=== PATIENT | female | born 1950 | race Caucasian/White ===

== ENCOUNTER 2022-01-06 13:01 | Outpatient (CLI) | payer MEDICARE, SELFPAY ==
[2022-01-06 15:00] LABS: Chloride* 100 mmol/L (96-114); Potassium* 4.5 mmol/L (3.6-5.1); Sodium* 136 mmol/L (135-149)
[2022-01-06 15:03] LABS: Blood Urea Nitrogen* 15 mg/dL (7-30); Carbon Dioxide* 29 mmol/L (20-32); Cholesterol* 220 mg/dL (90-199); Creatinine* 0.8 mg/dL (0.5-1.5); Estimated Glomerular Filt Rate 79 ml/min; Glucose* 95 mg/dL (60-115)
[2022-01-06 15:04] LABS: Calcium* 9.4 mg/dL (8.4-10.6); HDL Cholesterol* 66 mg/dL (>=50); LDL Cholesterol Calculated 128 mg/dL (<100); Triglycerides* 128 mg/dL (40-149)
[2022-01-06 15:24] LABS: Vitamin D 25 Hydroxy* 44 ng/mL (30-80)
== END 2022-01-06 13:02 | disposition home or self-care (01) ==
PROVIDERS: PCP Internal Medicine; Visit Provider Internal Medicine
DX: M85.80 Other specified disorders of bone density and structure, unspecified site (principal); I10 Essential (primary) hypertension; E78.5 Hyperlipidemia, unspecified
CPT/HCPCS: 80048; 80061; 82306

== ENCOUNTER 2022-01-09 07:06 | Outpatient (CLI) | payer MEDICARE, SELFPAY ==
--- NOTE | 2022-01-09 09:00 | W.ANESCHARGE ---
Anesthesia Charges Start Date/Time Anesthesia Start Date: 01/09/22 Anesthesia Start Time: 08:05 Stop Date/Time Anesthesia Stop Date: 01/09/22 Anesthesia Stop Time: 08:45 Summary Emergency: No Extremes of Age: Over 70-CPT [id number]
--- NOTE | 2022-01-09 09:23 | W.ANESCHARGE ---
Anesthesia Charges Start Date/Time Anesthesia Start Date: 01/09/22 Anesthesia Start Time: 08:05 Stop Date/Time Anesthesia Stop Date: 01/09/22 Anesthesia Stop Time: 08:45 Summary Emergency: No Extremes of Age: Over 71-CPT [id number]
== END 2022-01-09 07:07 | disposition home or self-care (01) ==
PROVIDERS: PCP Internal Medicine; Visit Provider Surgery
DX: Z86.010 Personal history of colon polyps (principal); K63.5 Polyp of colon; K57.30 Diverticulosis of large intestine without perforation or abscess without bleeding; Z98.890 Other specified postprocedural states
CPT/HCPCS: 45385; 811; 88305; 99100; J2704

== ENCOUNTER 2022-02-12 07:30 | Outpatient (RCR) | payer MEDICARE, SELFPAY | END 2022-02-14 08:32 | disposition home or self-care (01) | PROVIDERS: PCP Internal Medicine; Visit Provider Internal Medicine | DX: M25.562 Pain in left knee (principal); Z51.89 Encounter for other specified aftercare | CPT/HCPCS: 97110 ==

== ENCOUNTER 2022-03-18 12:39 | Outpatient (CLI) | payer MEDICARE, SELFPAY ==
--- OUTSIDE RECORDS SUMMARY | 2022-03-18 12:41 | XMS_ITS | Clinical Summary ---
:1950 Author Organization [employer] [facility] [place] [address] Care Team Providers Name Role Phone [facility] Primary Care Provider Unavailable Allergies No known active allergies Medications Medication Sig Dispensed Refills Start Date End Date Status EPINEPHrine (EPIPEN) Inject 0.3 mg 2 Each 1 12/05/2013 Active 0.3 mg/0.3 mL intramuscular one (1:1,000) injection time if needed for Allergic Reaction. acyclovir (ZOVIRAX) TAKE 1 TABLET BY 45 tablet 2 01/31/2015 Active 400 mg MOUTH THREE TIMES tabletIndications: DAILY NEEDED FOR Herpes simplex 5 DAYS without mention of complication predniSONE Take 4 tabs x 2 20 tablet 0 01/31/2015 Ac tive (DELTASONE) 10 mg days, then 3tabs x 2 tabletIndications: days, then 2 tabs x Contact dermatitis 2 days and then 1 tab x 2days. triamcinolone Apply topically to 30 g 1 01/31/2015 Active (ARISTOCORT; affected area(s) 3 KENALOG) 0.1 % times daily. creamIndications: Contact dermatitis predniSONE 3 tabs qday x 3 20 tablet 0 02/05/2015 Ac tive (DELTASONE) 20 mg days, then 2 tabs x tabletIndications: 3 days, then 1 tab x Contact dermatitis 3 days then 1/2 tab x 4 days. Active Problems Problem Noted Date Unspecified constipation 08/16/2012 Adenomatous colon polyp 06/09/2012 Overview: Colonoscopy 05/2012 polyp repeat in 3 ye ars Skin lesion 01/05/2012 Vitamin D deficiency 02/12/2011 Thoracic or lumbosacral neuritis or radiculitis, unspe cified 05/19/2008 Displacement of lumbar intervertebral disc without mye lopathy 05/19/2008 Overview: Herniated l4-5 disc noted on MRI health maintenance 10/25/2007 Overview: Colonoscopy negative 1999. Osteopenia on dexa. Recommend diet and e xercise. Recheck 3-5 years. Lola Malagon M.D. 03/23/2012 9 :56 PM Unspecified tinnitus 10/25/2007 Overview: Evaluation unremarkable 04/11 Herpes simplex without mention of complication 008 Encounters Date Type Specialty Care Team Description 01/09/2022 Lab Requisition Baron Henry MD from Last 3 Months Immunizations Name Administration Dates Next Due Amb Influenza, Inact (Intradermal)(age 18-64 Yrs)(Flu 2012 Clinic Only) Td (Age >=7 Years) 07/31/1997 Tdap 10/25/2007 Zoster (Zostavax-ZVL, live) 01/05/2012 Family History Medical History Relation Name Comments Heart Disease Father uncertain age of onset Other Father COPD/ dementia Other Mother emphasema/early alzheimers, osteoporosis Diabetes Neg. 1 Cancer-colon Neg. 2 Cancer-ovarian Neg. 3 Cancer-breast No Family History Relation Name Status Comments Father Mother Neg. 1 Neg. 2 Neg. 3 Social History Tobacco Use Types Packs/Day Years Used Date Never Smoker Smokeless Tobacco: Never Used Tobacco Cessation: Counseling Given: Yes Alcohol Use Standard Drinks/Week Comments Yes 0 (1 standard drink = 0.6 oz pure alcoho l) rarely Sex Assigned at Date Recorded Not on file Obstetrics History Para Term AB IAB SAB Ectopic Multiple Living Live Births 2 2 2 Date Outcome GA Total Labor/2nd/3rd Weight Sex Delivery Anes PTL Jane A 1 A5 Name Clin Labor Para Para Last Filed Vital Signs Vital Sign Reading Time Taken Comments Blood Pressure 134/78 01/31/2015 12:48 PM CDT Pulse 62 01/31/2015 12:48 PM CDT Temperature 36.9 ??C (98.4 ??F) 01/31/2015 12:48 PM CDT Respiratory Rate - - Oxygen Saturation 100% 01/31/2015 12:48 PM CDT Inhaled Oxygen Concentration - - Weight 76.2 kg (168 lb) 01/31/2015 12:48 PM CDT Height 160 cm (5' 3) 10/06/2013 2:39 PM CDT Body Mass Index 29.76 10/06/2013 2:39 PM CDT Plan of Treatment Health Maintenance Due Date Last Done Comments COVID-19 vaccine series (#1) 1950 Depression screening for age 12+ 1963 BMI (ht and wt on same day) for age 0106/26/1969 18+ Hepatitis C screening for age 18-79 1969 Zoster (shingles) series for age 50+ 03/01/2012 01/05/2012 (2 of 3) Mammogram for age 45-75 12/28/2012 12/29/2011, 11/05/2010, 10/25/2007 Colonoscopy through age 75 05/28/2015 05/28/2012, 2 DEXA/DXA scan for age 65+ 2016 03/16/2012 Pneumococcal series for age 65+ (1 - 2016 PCV) Lipids for age 45-75 12/28/2016 12/29/2011, 11/05/2010, 10/07/2007 Tetanus booster 10/24/2017 10/25/2007, 07/31/1997 Influenza for age 65+ 02/06/2022 Tdap Completed 10/25/2007 Procedures Procedure Name Priority Date/Time Associated Diagnosis Comme nts LAB TRACKING EVENT Routine 01/09/2022 8:25 AM CDT PATH TISSUE EXAM Routine 01/09/2022 8:25 AM Resul ts for this CDT procedure are i n the results section. from Last 3 Months Results LAB TRACKING EVENT (01/09/2022 8:25 AM CDT) Specimen Anatomical Collection Method Collection Time Receive d Time (Source) Location / / Volume Laterality Other (Other) Client Collect / 01/09/2022 8:25 AM 09/2021 9:37 Unknown CDT PM CDT Baron Henry MD LAB BILL ONLY Performing Organization Address City/State/ZIP Code Phon e Number [facility] [address] [place] [address] LABORATORY-CENTRAL 1999 LABORATORY PATH TISSUE EXAM (01/09/2022 8:25 AM CDT) Component Value Ref Test Analysis Performed At [facility] gist Range Method Time Signature Case Report Pathology Report ?Case: [id number] ? 01/13/2022 [facility] Authorizing Provider: ??Baron Garber MD ?Collected: ? 01/09/2022 0825 ? 10:39 AM LABORAT ORY-CE Ordering Location: ? [facility] ?Received: ?01/10/2022 1316 ? CDT NT [facility] Pathologist: ? Lorelei Brown, DO ? LABORATORY Specimen: ?Splenic Flexu re Polyp ? Final A) COLON, SPLENIC FLEXURE, POLYPECTOMY: 01/13/2022 [facility] Electronically Diagnosis 1. Tubular adenoma 10:39 AM LABORATORY- CE signed by 2. Negative for high grade dysplasia CDT Lorelei Rausch 3. Per the colonoscopy report: CASTRO Mcgill, DO on ?? a. Polyp size: 4 mm 01/13/2022 at ?? b. Resection: Complete 10:39 AM ?? c. Retrieval: Complete Clinical Ms. Schaeffer is 01/13/2022 [facility] Information a 71 y.o. who 10:39 AM LABORATORY-CE presents for CDT NTRAL colonoscopy LABORATORY examination. A 4 mm polyp was found at the splenic flexure. Gross A) Received in formalin is a tomlinson mucosal fragment measuring 3 mm in greatest dimension, which is entirely submitted in one cassette. It is labeled with the patient's name and designated splenic flexure polyp. 01/13/2022 [facility] Description 10:39 AM LABORATORY-CE Larry Delaney 01/10/2022 1:29 PM CDT NTRAL LABORATORY Microscopic The final 01/13/2022 [facility] Description diagnosis is 10:39 AM LABORATORY-CE based on CDT NTRAL microscopic LABORATORY examination of appropriate sections of all specimens. Additional 01/13/2022 [facility] Information Interpreted at [facility], Central Laboratory - [address], [place] [address] 10:39 AM LABORATORY-CE CDT NTRAL LABORATORY Specimen Anatomical Collection Method Collection Time Receive d Time (Source) Location / / Volume Laterality Other (Splenic 01/09/2022 8:25 AM 022 1:16 Flexure Polyp) CDT PM CDT Baron Henry MD PATHOLOGY/CYTOLOGY Performing Organization Address City/State/ZIP Code Phon e Number [facility] [address] [place] [address] LABORATORY-CENTRAL 2000 LABORATORY from Last 3 Months Insurance Payer Benefit Plan / Subscriber ID Effective Dates Phone Addre ss Type Group [employer] OF [id number] 2014-Present [address] [place] [address] Guarantor Name Account Type Relation to Date of Phone Bill ing Patient Address Ysabel Schaeffer Personal/Family Self [address] (Home) [place] [phone] (Work) Care Teams Residence Life Director Relationship Specialty Start Date End Date Erma Gipson PCP - General 04/02/16
--- NOTE | 2022-03-18 13:00 | CRLHL7_ITS ---
For Patients: As a result of the Cures Act, medical imaging exams and procedure reports are released immediately into your electronic medical record. You may view this report before your referring provider. If you have questions, please contact your health care provider. BILATERAL SCREENING MAMMOGRAM WITH COMPUTER-AIDED DETECTION AND TOMOSYNTHESIS TECHNIQUE: CC and MLO views were obtained. These mammographic images have been obtained using full-field digital technique. These mammographic images were interpreted with the benefit of computer-aided detection. Breast Tomosynthesis was used in this interpretation. COMPARISON FILM: 02/14/21, 04/17/17, 10/12/15. FINDINGS: The breasts are almost entirely fatty IMPRESSION: There is no radiographic evidence for malignancy. ASSESSMENT: BI-RADS Category 1: Negative RECOMMENDATION: Routine screening mammogram in 1 year. A lay language report of this examination will be provided to the patient. Larry Guzman M.D. Diagnostic Radiologist [email or web address] EFRA/telma / be/Dictated by: Larry Guzman MD @ 03/19/2022 11:42:00 AM (Electronically Signed)
== END 2022-03-18 12:40 | disposition home or self-care (01) ==
LOC: MAMMO 12:39
PROVIDERS: PCP Internal Medicine; Visit Provider Internal Medicine
DX: Z12.31 Encounter for screening mammogram for malignant neoplasm of breast (principal)
CPT/HCPCS: 77063; 77067

== ENCOUNTER 2022-04-11 09:37 | Outpatient (CLI) | payer MEDICARE, SELFPAY ==
--- OUTSIDE RECORDS SUMMARY | 2022-04-11 09:40 | XMS_ITS | Clinical Summary ---
:1950 Author Organization [employer] [facility] [place] [address] Care Team Providers Name Role Phone [place] [facility] Primary Care Provider Unavailable Allergies No known [...] Organization Address City/State/ZIP Code Phon e Number [facility] [address] [place] [address] LABORATORY-CENTRAL 1999 LABORATORY PATH TISSUE EXAM (01/09/2022 8:25 AM CDT) Component Value Ref Test Analysis Performed At [facility] gist Range Method Time Signature Case Report Pathology Report ?Case: [id number] ? 01/13/2022 [facility] Authorizing Provider: ??Baron Garber MD ?Collected: ? 01/09/2022 0825 ? 10:39 AM LABORAT ORY-CE Ordering Location: ? [facility] ?Received: ?01/10/2022 1316 ? CDT NT [facility] Pathologist: ? Lorelei Brown, DO ? LABORATORY Specimen: ?Splenic Flexu re Polyp ? Final A) COLON, SPLENIC FLEXURE, POLYPECTOMY: 01/13/2022 [facility] Electronically Diagnosis 1. Tubular adenoma 10:39 AM LABORATORY- CE signed by 2. Negative for high grade dysplasia CDT Lorelei Rausch 3. Per the colonoscopy report: CASTRO Mcgill, DO on ?? a. Polyp size: 4 mm 01/13/2022 at ?? b. Resection: Complete 10:39 AM ?? c. Retrieval: Complete Clinical Ms. Schaeffer is 01/13/2022 [facility] Information a 71 y.o. who 10:39 AM LABORATORY-CE presents for CDT NTRAL colonoscopy LABORATORY examination. A 4 mm polyp was found at the splenic flexure. Gross A) Received in formalin is a tomlinson mucosal fragment measuring 3 mm in greatest dimension, which is entirely submitted in one cassette. It is labeled with the patient's name and designated splenic flexure polyp. 01/13/2022 [facility] Description 10:39 AM LABORATORY-CE Larry Delaney 01/10/2022 1:29 PM CDT NTRAL LABORATORY Microscopic The final 01/13/2022 [facility] Description diagnosis is 10:39 AM LABORATORY-CE based on CDT NTRAL microscopic LABORATORY examination of appropriate sections of all specimens. Additional 01/13/2022 [facility] Information Interpreted at [facility], Central Laboratory - [address], [place] [address] 10:39 AM LABORATORY-CE CDT NTRAL LABORATORY Specimen Anatomical Collection Method Collection Time Receive d Time (Source) Location / / Volume Laterality Other (Splenic 01/09/2022 8:25 AM 022 1:16 Flexure Polyp) CDT PM CDT Baron Henry MD PATHOLOGY/CYTOLOGY Performing Organization Address City/State/ZIP Code Phon e Number [facility] [address] [place] [address] LABORATORY-CENTRAL 2000 LABORATORY from Last 3 Months Insurance Payer Benefit Plan / Subscriber ID Effective Dates Phone Addre ss Type Group [employer] OF [id number] 2014-Present [address] [place] [address] Guarantor Name Account Type Relation to Date of Phone Bill ing Patient Address Ysabel Schaeffer Personal/Family Self [address] (Home) [place] [phone] (Work) Care Teams Csr Technician Relationship Specialty Start Date End Date Erma Gipson PCP - General 04/02/16
== END 2022-04-11 09:38 | disposition home or self-care (01) ==
LOC: NFLDREF 09:38
PROVIDERS: PCP Internal Medicine; Visit Provider Family Medicine
DX: R35.0 Frequency of micturition (principal)
CPT/HCPCS: 87086

== ENCOUNTER 2022-06-17 11:36 | Outpatient (CLI) | payer MEDICARE, SELFPAY ==
[2022-06-17 14:47] LABS: Chlamydia DNA Amplified* NOT DETECTED (No Detected); GC DNA Amplified* NOT DETECTED (No Detected)
== END 2022-06-17 11:37 | disposition home or self-care (01) ==
LOC: NFLDREF 11:37
PROVIDERS: PCP Internal Medicine; Visit Provider Family Medicine
DX: R10.2 Pelvic and perineal pain (principal); R21 Rash and other nonspecific skin eruption
CPT/HCPCS: 87491; 87591

== ENCOUNTER 2023-08-27 09:54 | Outpatient (CLI) | payer MEDICARE, SELFPAY ==
--- NOTE | 2023-08-27 10:15 | MM_ITS ---
Patient: MELANIA CARTER Facility:?[facility] Patient ID:?[id number] Site Patient ID:?[id number] Site :?1950 Study:?XRay-Breast Bilateral 3D W/CAD-08/27/2023 10:36:03 AM Ordering Physician:Adri Cabrera Final Report: BILATERAL SCREENING MAMMOGRAM WITH COMPUTER-AIDED DETECTION AND TOMOSYNTHESIS TECHNIQUE: CC and MLO views were obtained. These mammographic images have been obtained using full-field digital technique. These mammographic images were interpreted with the benefit of computer-aided detection. Breast Tomosynthesis was used in this interpretation. COMPARISON FILM: 03/18/22, 02/14/21, 04/17/17. FINDINGS: The breasts are almost entirely fatty. IMPRESSION: There is no radiographic evidence for malignancy. ASSESSMENT: BI-RADS Category 2: Benign RECOMMENDATION: Routine screening mammogram in 1 year. A lay language report of this examination will be provided to the patient. Larry Guzman M.D. Diagnostic Radiologist [email or web address] DSM/sp R& Transcribed: 6:13 p.m. SP/Dictated by: Larry Guzman MD @ 08/27/2023 12:11:00 PM Signed by:?Larry Guzman MD @08/28/2023 5:42:56 AM (Electronic Signature)
== END 2023-08-27 09:55 | disposition home or self-care (01) ==
LOC: MAMMO 09:54
PROVIDERS: PCP Internal Medicine; Visit Provider Internal Medicine
DX: Z12.31 Encounter for screening mammogram for malignant neoplasm of breast (principal); I10 Essential (primary) hypertension; E78.5 Hyperlipidemia, unspecified; E66.9 Obesity, unspecified
CPT/HCPCS: 77063; 77067; 80048; 80061; 82306

== ENCOUNTER 2023-09-30 12:47 | Outpatient (CLI) | payer MEDICARE, SELFPAY ==
--- OUTSIDE RECORDS SUMMARY | 2023-09-30 12:50 | XMS_ITS | Clinical Summary ---
Author Name Unknown Organization [employer] [facility] Address [place], [place] [address] Care Team Providers Care Novelties Sales Representative Name Role Phone [facility] Primary Care Provider Unavail able Allergies No known active allergies Medications Medication Sig Dispensed Refills Start Date End Date Status EPINEPHrine (EPIPEN) 0.3 mg/0.3 mL (1:1,000) injection Inject 0.3 mg intramuscular one time if needed for Allergic Reaction. 2 Each 1 12/05/2013 Active acyclovir (ZOVIRAX) 400 mg tabletIndications:H erpes simplex without mention of complication TAKE 1 TABLET BY MOUTH THREE TIMES DAILY NEEDED FOR 5 DAYS 45 tablet 2 01/31/2015 Active predniSONE (DELTASONE) 10 mg tabletIndications:C ontact dermatitis Take 4 tabs x 2 days, then 3tabs x 2 days, then 2 tabs x 2 days and then 1 tab x 2days. 20 tablet 0 01/31/2015 Active triamcinolone (ARISTOCORT; KENALOG) 0.1 % creamIndications:Co ntact dermatitis Apply topically to affected area(s) 3 times daily. 30 g 1 01/31/2015 Active predniSONE (DELTASONE) 20 mg tabletIndications:C ontact dermatitis 3 tabs qday x 3 days, then 2 tabs x 3 days, then 1 tab x 3 days then 1/2 tab x 4 days. 20 tablet 0 02/05/2015 Active Active Problems Problem Noted Date Diagnosed Date Unspecified constipation 08/16/2012 Adenomatous colon polyp 06/09/2012 Overview: Colonoscopy 05/2012 polyp repeat in 3 years Skin lesion 01/05/2012 Vitamin D deficiency 02/12/2011 Thoracic or lumbosacral neur itis or radiculitis, unspecified 05/19/2008 Displacement of lumbar inter vertebral disc without myelopathy 05/19/2008 Overview: Herniated l4-5 disc noted on MRI health maintenance 10/25/2007 Overview: Colonoscopy negative 1999. Osteopenia on dexa. Recommend diet and exercise. Recheck 3-5 years. Lola Malagon M.D. 03/23/2012 9:56 PM Unspecified tinnitus 10/25/2007 Overview: Evaluation unremarkable 04/11 Herpes simplex without mention of complication 0 10/25/2007 Immunizations Name Administration Dates Next Due Amb Influenza, Inact (Intrad ermal)(age 18-64 Yrs)(Flu Clinic Only) 05/06/2013 Td (Age >=7 Years) 07/31/1997 Tdap 10/25/2007 [...] Tobacco Use Types Packs/Day Years Used Date Smoking Tobacco: Never Smokeless Tobacco: Never Tobacco Cessation:Counseling Given: Yes Alcohol Use Standard Drinks/Week Comments Yes 0 (1 standard drink = 0.6 oz pur e alcohol) rarely Sex and Gender Information Value Date Recorded Sex Assigned at Not on file Gender Identity Not on file Sexual Orientation Not on file Obstetrics History Para Term AB IAB SAB Ectopic Multiple Livin g Live Births 2 2 2 Date Outcome GA Total Labor Labor/2nd/3rd Weight Sex Delivery Anes PTL Jane A1 A5 Name Cl in Para Para Last Filed Vital Signs Vital Sign Reading Time Taken Comments Blood Pressure 134/78 01/31/2015 12:48 PM CDT Pulse 62 01/31/2015 12:48 PM CDT Temperature 36.9 ??C (98.4 ??F) 01/31/2015 12:48 PM C DT Respiratory Rate - - Oxygen Saturation 100% 01/31/2015 12:48 PM CDT Inhaled Oxygen Concentration - - Weight 76.2 kg (168 lb) 01/31/2015 12:48 PM CDT Height 160 cm (5' 3) 10/06/2013 2:39 PM CDT Body Mass Index 29.76 10/06/2013 2:39 PM CDT Plan of Treatment Health Maintenance Due Date Last Done Comments Depression screening for age 12+ 1963 BMI (ht and wt on same day) for age 18+ 1969 Hepatitis C screening for age 18-79 1969 Zoster (shingles) series for age 50+ (2 of 3) 03/01/2012 01/05/2012 Mammogram for age 45-75 12/28/2012 12/29/19 12, 11/05/2010, 10/25/2007 Colonoscopy through age 75 05/28/2015 05/28/2012, DEXA/DXA scan for age 65+ 2016 03/16/2012 Pneumococcal series for age 65+ (1 of 1 - PCV) 2016 Lipids for age 45-75 12/28/2016 12/29/2011, 11/05/2010, 10/07/2007 Tetanus booster 10/24/2017 10/25/2007, 07/31/1997 COVID-19 vaccine series (2022- season) 2023 Influenza for age 65+ 02/07/2024 Tdap Completed 10/25/2007 Procedures Procedure Name Priority Date/Time Associated Diagnosis Comments XR DXA BONE DENSITY 2 SITES AXIAL Routine 03/16/2012 8:54 AM CDT Screening for osteoporosis LIPID PANEL W REFLEX MEASURED LDL Routine 12/29/2011 8:31 AM CDT Screening, lipid XR MAMMO BILAT SCREEN FFDM (IA) Routine 12/29/2011 8:16 AM CDT Other screening mammogram from Last 3 Months or Most Recently Relevant to Health Maintenance Results * XR DEXA BONE DENSITY 2 SITES (03/16/2012 8:54 AM CDT) Anatomical Region Laterality Modality Spine, HIPS, HIPL, HIPR Other Narrative 03/23/2012 11:51 AM CDT Please see scanned document for results of this study. Procedure Note Analilia Smith PA - 03/23/2012 Please see scanned document for results of this study. Lola Malagon DEXA * LIPID PANEL W REFLEX MEASURED LDL (12/29/2011 8:31 AM CDT) CHOLESTEROL,TOTAL 180 100 - 199 mg/dL 12/29/2011 9:24 AM CDT [facility] TRIGLYCERIDES 37 <150 mg/dL 12/29/2011 9:24 AM CDT [facility] HDL CHOLESTEROL 75 >40 mg/dL 2 9:24 AM CDT [facility] CHOL/HDL RATIO 2.40 <4.50 12/29/2011 9:24 AM CDT [facility] LDL CHOLESTEROL 98 >=0 mg/dL 2 9:24 AM CDT [facility] PATIENT STATUS FASTING 12/29/2011 9:24 AM CDT [facility] Blood specimen (specimen) BLOOD SPECIMEN / Unknown 12/29/2011 8:31 AM CDT 12/29/2011 8:31 AM CDT Lola Malagon CHEMISTRY [facility] [address] [place] [address] * XR MAMMO BILAT SCREEN FFDM (12/29/2011 8:16 AM CDT) Anatomical Region Laterality Modality BREASTS, Breast Left, Breast Right Bilateral Mammography Impressions 12/29/2011 12:14 PM CDT ??There is no radiographic evidence for malignancy. ??Recommend annual mammograms. A lay language report of this examination will be provided to the patient. MAMMOGRAM ASSESSMENT: ??ACR 2 Benign Narrative 12/29/2011 12:14 PM CDT XR MAMMO BILAT SCREEN FFDM [G0202.0] CLINICAL HISTORY: ??This is an asymptomatic 61 y.o. patient. INDICATION FOR EXAM: Mammogram Screening. TECHNIQUE: CC & MLO views were obtained. ??This digital study was evaluated with the assistance of Computer-Aided Detection. ?? COMPARISON FILMS: Yes 11/05/10 [facility] 10/25/07 [facility] FINDINGS: ??Mammographically, the breast tissue has scattered fibroglandular densities (approximately 25% - 50% glandular). ??No suspicious masses or microcalcifications. ??Benign appearing calcifications within both breasts and Benign appearing asymmetry within left breast. Procedure Note Joe Gomez MD - 12/29/2011 XR MAMMO BILAT SCREEN FFDM [G0202.0] CLINICAL HISTORY: This is an asymptomatic 61 y.o. patient. INDICATION FOR EXAM: Mammogram Screening. TECHNIQUE: CC & MLO views were obtained. This digital study was evaluatedwith the assistance of Computer-Aided Detection. COMPARISON FILMS: Yes 11/05/10 [facility] 10/25/07 [facility] FINDINGS: Mammographically, the breast tissue has scatteredfibroglandular densities (approximately 25% - 50% glandular). Nosuspicious masses or microcalcifications. Benign appearing calcificationswithin both breasts and Benign appearing asymmetry within left breast. IMPRESSION: There is no radiographic evidence for malignancy. Recommendannual mammograms. A lay language report of this examination will be provided to the patient. MAMMOGRAM ASSESSMENT: ACR 2 Benign Lola Malagon MAMMO from Last 3 Months or Most Recently Relevant to Health Maintenance Care Teams Novelties Sales Representative Relationship Specialty Start Date End Date Erma Gipson PCP - General 04/02/16
--- OUTSIDE RECORDS SUMMARY | 2023-09-30 12:50 | XMS_ITS | Continuity of Care Document ---
Author Name Unknown Organization [facility] Address [address] [place] [address] [address] [place] [address] Phone Care Team Providers Care Rework Machine Operator Name Role Phone Gladys MACHUCA, Nino Unavailable Unavailable Procedures Procedure Date Office consultation, moderate 9 Advance Directives Directive Yes / No Effective Date File Name No Information Encounters Encounter Description Practice Location Reason(s) For Visit Diagnoses Date Provider Providers Copied on Encounter Office consultation, moderate [facility], [address], [address], [place] tel:[phone] [facility] No Information Gladys Oneill. [facility], [address], [place], [place], [id number] , [place]. tel:[phone] Referring Provider: Rickie Mancini, [address], [place], [address]. tel:[phone] Family History Family Member Type Diagnosis Age At Onset No Information Payers Payer name Insurance type Covered constitution party ID Authormarkya tiluis(s) [facility] [id number] Social History Type Description Quantity Date Captured Comments Sex Female Smoking Status No Information Chief Complaint And Reason For Visit No Information Reason For Referral Reason For Referral No Information History Of Present Illness Encounter Date Complaint History Of Prese nt Illness No Information Functional Status Date Functional Assessmen t No Information Instructions Date Instruction Additional Infor mation No Information Assessments Type Assessment Date No Information Patient Care Teams Name Effective Dates (start - stop) Status Members No Information
--- NOTE | 2023-09-30 13:00 | XR_ITS ---
Patient: MELANIA CARTER Facility:?[facility] Patient ID:?[id number] Site Patient ID:?[id number]. Site :?[id number] Study:?DEXA-Bone Density -09/30/2023 3:22:49 PM Ordering Physician:CHARBEL Final Report: DXA BONE MINERAL DENSITY STUDY Reason for exam: Osteopenia. Current height (in): 62.0. Weight (lb): 230.0. Menopause age: 49. Ethnicity: White. 1. Have you had a previous hip or vertebral fracture? No. 2. Have you had any fractures during your adult life which did not result from significant trauma (e.g., auto accident)? No. 3. Did either of your parents have a hip fracture? No. 4. Do you smoke? No. 5. Have you ever taken Glucocorticoids? No. 6. Do you have rheumatoid arthritis? No. 7. Do you have secondary osteoporosis? No. 8. Do you drink 3 or more alcoholic drinks per day? No. 9. Are you being treated for osteoporosis? No. 10. Have you ever taken any of the following medications: Actonel, Evista, Fosamax, Miacalcin, Reclast, Boniva, Forteo, HRT (i.e. estrogen/hormone therapy), Protelos, Prolia, Vitamin D, Calcium, other ? please specify. ANSWER: Yes, vitamin D, calcium. 11. Do you have any of the following medical conditions: Anorexia or bulimia, asthma or emphysema, end stage renal disease, hyperparathyroidism, any seizure disorders, cancer, inflammatory bowel diseases, hysterectomy, other ? please specify. ANSWER: No. 12. What was your maximum height (inches)? 63.5. 13. Do you perform weight bearing exercise regularly? Yes. 14. Do you regularly consume dairy products? Yes. 15. Do you drink caffeinated beverages? Yes. 16. At what age did your period start? 15. 17. Are you premenopausal? No. 18. How many full term pregnancies have you had? 2. 19. Have you ever missed your period for more than 6 months in a row (not including or menopause)? No. TECHNIQUE: Bone mineral density study was performed using the [employer]. FINDINGS: The results of the study expressed as bone mineral density (BMD) are as follows: Lumbar spine L1 to L3: BMD: 0.904 g/cm2. T-score: -1.0. Z-score: 1.2. Neck Left: BMD: 0.566 g/cm2. T-score: -2.5. Z-score: -0.6. Right: BMD: 0.691 g/cm2. T-score: -1.4. Z-score: 0.5. Total Left: BMD: 0.827 g/cm2. T-score: -0.9. Z-score: 0.7. Right: BMD: 0.825 g/cm2. T-score: -1.0. Z-score: 0.7. IMPRESSION: Osteoporosis. *Comparison exams done prior to 11/2019 were performed on different unit, [employer]. COMPARISON: Compared with scan of 08/09/2020, the bone mineral density has increased by 10.7 percent at the spine and decreased by 1.8 percent at the hip. Larry Guzman M.D. Diagnostic Radiologist [email or web address] EFRA/telma / be/Dictated by: Larry Guzman MD @ 10/01/2023 8:19:00 AM Signed by:?Larry Guzman MD @10/02/2023 11:26:43 AM (Electronic Signature)
== END 2023-09-30 12:48 | disposition home or self-care (01) ==
LOC: RAD 12:48
PROVIDERS: PCP Internal Medicine; Visit Provider Internal Medicine
DX: M85.88 Other specified disorders of bone density and structure, other site (principal); M81.0 Age-related osteoporosis without current pathological fracture
CPT/HCPCS: 77080

== ENCOUNTER 2023-11-12 09:08 | Outpatient (CLI) | payer MEDICARE, SELFPAY ==
--- OUTSIDE RECORDS SUMMARY | 2023-11-12 09:10 | XMS_ITS | Clinical Summary ---
Author Organization [employer] [facility] & [facility] Address [place], [place] [address] Care Team Providers Care Information Assurance Name Role Phone [facility] Primary Care Provider Unavail able Allergies No [...] REFLEX MEASURED LDL (12/29/2011 8:31 AM CDT) [facility] CHOLESTEROL,TOTAL 180 100 - 199 mg/dL 12/29/2011 9:24 AM CDT [facility] TRIGLYCERIDES 37 <150 mg/dL 12/29/2011 9:24 AM CDT [facility] HDL CHOLESTEROL 75 >40 mg/dL 2 9:24 AM CDT [facility] CHOL/HDL RATIO 2.40 <4.50 12/29/2011 9:24 AM CDT [facility] LDL CHOLESTEROL 98 >=0 mg/dL 2 9:24 AM CDT [facility] PATIENT STATUS FASTING 12/29/2011 9:24 AM CDT [facility] Blood specimen (specimen) BLOOD SPECIMEN / Unknown 12/29/2011 8:31 AM CDT 12/29/2011 8:31 AM CDT Lola Malagon CHEMISTRY [facility] [address] [place] [address] * XR MAMMO BILAT SCREEN FFDM (12/29/2011 [...] Computer-Aided Detection. ?? COMPARISON FILMS: Yes 11/05/10 [facility] 10/25/07 [facility] FINDINGS: ??Mammographically, the breast tissue has scattered [...] of Computer-Aided Detection. COMPARISON FILMS: Yes 11/05/10 [facility] 10/25/07 [facility] FINDINGS: Mammographically, the breast tissue has scatteredfibroglandular [...] Recently Relevant to Health Maintenance Care Teams Information Assurance Relationship Specialty Start Date End Date Erma Gipson PCP - General 04/02/16
--- OUTSIDE RECORDS SUMMARY | 2023-11-12 09:10 | XMS_ITS | Continuity of Care Document ---
Author Organization Z [facility] Address [address] [place] [address] [address] [place] [address] Phone Care Team Providers Care Leak Hunter Name Role Phone Gladys MACHUCA, Nino Unavailable Unavailable Procedures Procedure Date Office consultation, moderate 9 Advance Directives Directive Yes / No Effective Date File Name No Information Encounters Encounter Description Practice Location Reason(s) For Visit Diagnoses Date Provider Providers Copied on Encounter Office consultation, moderate Z [facility], [address] [place], [place] [address], [address], [place] tel:[phone] 4521 [facility] No Information Gladys Oneill. [facility] [place], [address], [place], [place], [id number] , [place]. tel:[phone] Referring Provider: Rickie Mancini, [address], [address]. tel:[phone] Family History Family Member Type Diagnosis Age At Onset No Information Payers Payer name Insurance type Covered democrat ID Authormarkya deandre(s) [facility] [id number] Social History Type Description Quantity Date Captured [...]
== END 2023-11-12 09:09 | disposition home or self-care (01) ==
LOC: NUTRITION 09:08
PROVIDERS: PCP Internal Medicine; Visit Provider Dietitian, Registered
DX: E66.9 Obesity, unspecified (principal); Z71.3 Dietary counseling and surveillance
CPT/HCPCS: G0463

== ENCOUNTER 2023-11-19 08:06 | Outpatient (CLI) | payer MEDICARE, SELFPAY ==
--- OUTSIDE RECORDS SUMMARY | 2023-11-19 08:09 | XMS_ITS | Continuity of Care Document ---
Author Organization Z [facility] Address [address] [place] [address] [address] [place] [address] Phone Care Team Providers Care Assistant Statistician Name Role Phone Gladys MACHUCA, Nino Unavailable Unavailable Procedures Procedure Date Office consultation, moderate 9 Advance Directives Directive Yes / No Effective Date File Name No Information Encounters Encounter Description Practice Location Reason(s) For Visit Diagnoses Date Provider Providers Copied on Encounter Office consultation, moderate Z [facility], [address] [place], [place] [address], [address], [place] tel:[phone] 6160 [facility] No Information Gladys Oneill. [facility] [place], [address], [place], [place], [id number] , [place]. tel:[phone] Referring Provider: Rickie Mancini, [address], [address]. tel:[phone] Family History Family Member Type Diagnosis Age At Onset No Information Payers Payer name Insurance type Covered green party ID Authormarkya deandre(s) [facility] [id number] Social History Type Description Quantity Date Captured [...]
--- OUTSIDE RECORDS SUMMARY | 2023-11-19 08:09 | XMS_ITS | Clinical Summary ---
Author Organization [facility] & [facility]MD[facility] Affiliates Address [place], [place] [address] Care Team Providers Care Ping Pong Table Assembler Name Role Phone [facility] Primary Care Provider Unavail able Allergies [...] Outcome GA Total Labor Labor/2nd/3rd Weight Sex Type Anes PTL Jane A1 A5 Name Clin Para Para Last Filed Vital Signs Vital [...] REFLEX MEASURED LDL (12/29/2011 8:31 AM CDT) [facility] CHOLESTEROL,TOTAL 180 100 - 199 mg/dL 12/29/2011 9:24 AM CDT [facility] TRIGLYCERIDES 37 <150 mg/dL 12/29/2011 9:24 AM CDT [facility] HDL CHOLESTEROL 75 >40 mg/dL 2 9:24 AM CDT [facility] CHOL/HDL RATIO 2.40 <4.50 12/29/2011 9:24 AM CDT [facility] LDL CHOLESTEROL 98 >=0 mg/dL 2 9:24 AM CDT [facility] PATIENT STATUS FASTING 12/29/2011 9:24 AM CDT [facility] Blood specimen (specimen) BLOOD SPECIMEN / Unknown 12/29/2011 8:31 AM CDT 12/29/2011 8:31 AM CDT Lola Malagon CHEMISTRY [facility] [address] [place] [address] * XR MAMMO BILAT SCREEN FFDM (12/29/2011 [...] Recently Relevant to Health Maintenance Care Teams Ping Pong Table Assembler Relationship Specialty Start Date End Date Erma Gipson PCP - General 04/02/16
[2023-11-19 09:40] VITALS: BMI 38.7
== END 2023-11-19 08:07 | disposition home or self-care (01) ==
LOC: OP CLINIC 08:07 → NUTRITION 08:28
PROVIDERS: PCP Internal Medicine; Visit Provider Dietitian, Registered
DX: E66.9 Obesity, unspecified (principal); Z71.3 Dietary counseling and surveillance
CPT/HCPCS: G0463

== ENCOUNTER 2023-12-03 10:18 | Outpatient (CLI) | payer MEDICARE, SELFPAY ==
--- OUTSIDE RECORDS SUMMARY | 2023-12-03 10:22 | XMS_ITS | Continuity of Care Document ---
Author Organization Z [facility] Address [address] [place] [address] [address] [place] [address] Phone Care Team Providers Care Teletype Installer Name Role Phone Gladys MACHUCA, Nino Unavailable Unavailable Procedures Procedure Date Office consultation, moderate 9 Advance Directives Directive Yes / No Effective Date File Name No Information Encounters Encounter Description Practice Location Reason(s) For Visit Diagnoses Date Provider Providers Copied on Encounter Office consultation, moderate Z [facility], [address] [place], [place] [address], [address], [place] tel:[phone] 6203 [facility] No Information Gladys Oneill. [facility] [place], [address], [place], [place], [id number] , [place]. tel:[phone] Referring Provider: Rickie Mancini, [address], [address]. tel:[phone] Family History Family Member Type Diagnosis Age At Onset No Information Payers Payer name Insurance type Covered constitution party ID Authormarkya deandre(s) [facility] [id number] Social History Type Description Quantity Date Captured [...]
--- OUTSIDE RECORDS SUMMARY | 2023-12-03 10:22 | XMS_ITS | Clinical Summary ---
Author Organization [employer] [facility] [employer] [facility] [employer] Address [place], [place] [address] Care Team Providers Care Assisted Living Nursing Director Name Role Phone [facility] Primary Care Provider Unavail able Allergies [...] REFLEX MEASURED LDL (12/29/2011 8:31 AM CDT) [facility] CHOLESTEROL,TOTAL 180 100 - 199 mg/dL 12/29/2011 9:24 AM CDT [facility] TRIGLYCERIDES 37 <150 mg/dL 12/29/2011 9:24 AM CDT [facility] HDL CHOLESTEROL 75 >40 mg/dL 2 9:24 AM CDT [facility] CHOL/HDL RATIO 2.40 <4.50 12/29/2011 9:24 AM CDT [facility] LDL CHOLESTEROL 98 >=0 mg/dL 2 9:24 AM CDT [facility] PATIENT STATUS FASTING 12/29/2011 9:24 AM CDT [facility] Blood specimen (specimen) BLOOD SPECIMEN / Unknown 12/29/2011 8:31 AM CDT 12/29/2011 8:31 AM CDT Lola Malagon CHEMISTRY [facility] [address] [place] [address] * XR MAMMO BILAT SCREEN FFDM (12/29/2011 [...] Computer-Aided Detection. ?? COMPARISON FILMS: Yes 11/05/[address] [facility] [place] 10/25/[address] [facility] [place] FINDINGS: ??Mammographically, the breast tissue has scattered [...] of Computer-Aided Detection. COMPARISON FILMS: Yes 11/05/[address] [facility] [place] 10/25/[address] [facility] [place] FINDINGS: Mammographically, the breast tissue has scatteredfibroglandular [...] Recently Relevant to Health Maintenance Care Teams Assisted Living Nursing Director Relationship Specialty Start Date End Date Erma Gipson PCP - General 04/02/16
[2023-12-03 10:41] VITALS: BMI 38.2
== END 2023-12-03 10:19 | disposition home or self-care (01) ==
LOC: NUTRITION 10:19
PROVIDERS: PCP Internal Medicine; Visit Provider Dietitian, Registered
DX: E66.9 Obesity, unspecified (principal); Z71.3 Dietary counseling and surveillance
CPT/HCPCS: G0463

== ENCOUNTER 2023-12-17 08:14 | Outpatient (CLI) | payer MEDICARE, SELFPAY ==
--- OUTSIDE RECORDS SUMMARY | 2023-12-17 08:17 | XMS_ITS | Continuity of Care Document ---
Author Organization Z [facility] Address [address] [place] [address] [address] [place] [address] Phone Care Team Providers Care Director Alumni Relations Name Role Phone Gladys MACHUCA, Nino Unavailable Unavailable Procedures Procedure Date Office consultation, moderate 9 Advance Directives Directive Yes / No Effective Date File Name No Information Encounters Encounter Description Practice Location Reason(s) For Visit Diagnoses Date Provider Providers Copied on Encounter Office consultation, moderate Z [facility], [address] [place], [place] [address], [address], [place] tel:[phone] 1756 [facility] No Information Gladys Oneill. [facility] [place], [address], [place], [place], [id number] , [place]. tel:[phone] Referring Provider: Rickie Mancini, [address], [address]. tel:[phone] Family History Family Member Type Diagnosis Age At Onset No Information Payers Payer name Insurance type Covered alliance party ID Authormarkya deandre(s) [facility] [id number] Social History Type Description Quantity Date Captured [...]
--- OUTSIDE RECORDS SUMMARY | 2023-12-17 08:17 | XMS_ITS | Clinical Summary ---
Author Organization [facility] Address [place], [place] [address] Care Team Providers Care Order Fulfillment Specialist Name Role Phone [facility] Primary Care Provider Unavail able Allergies No [...] REFLEX MEASURED LDL (12/29/2011 8:31 AM CDT) [facility] CHOLESTEROL,TOTAL 180 100 - 199 mg/dL 12/29/2011 9:24 AM CDT [facility] TRIGLYCERIDES 37 <150 mg/dL 12/29/2011 9:24 AM CDT [facility] HDL CHOLESTEROL 75 >40 mg/dL 2 9:24 AM CDT [facility] CHOL/HDL RATIO 2.40 <4.50 12/29/2011 9:24 AM CDT [facility] LDL CHOLESTEROL 98 >=0 mg/dL 2 9:24 AM CDT [facility] PATIENT STATUS FASTING 12/29/2011 9:24 AM CDT [facility] Blood specimen (specimen) BLOOD SPECIMEN / Unknown 12/29/2011 8:31 AM CDT 12/29/2011 8:31 AM CDT Lola Malagon CHEMISTRY [facility] [address] [place] [address] * XR MAMMO BILAT SCREEN FFDM (12/29/2011 [...] Computer-Aided Detection. ?? COMPARISON FILMS: Yes 11/05/10 [facility] 10/25/07 [facility] FINDINGS: ??Mammographically, the breast tissue has [...] of Computer-Aided Detection. COMPARISON FILMS: Yes 11/05/10 [facility] 10/25/07 [facility] FINDINGS: Mammographically, the breast tissue has [...] Recently Relevant to Health Maintenance Care Teams Order Fulfillment Specialist Relationship Specialty Start Date End Date Erma Gipson PCP - General 04/02/16
[2023-12-17 10:09] VITALS: BMI 37.5
== END 2023-12-17 08:15 | disposition home or self-care (01) ==
PROVIDERS: PCP Internal Medicine; Visit Provider Family Medicine
DX: N39.0 Urinary tract infection, site not specified (principal)
CPT/HCPCS: 87086; G0463

== ENCOUNTER 2024-01-07 08:44 | Outpatient (CLI) | payer MEDICARE, SELFPAY ==
--- OUTSIDE RECORDS SUMMARY | 2024-01-07 08:46 | XMS_ITS | Clinical Summary ---
Author Organization [employer] [facility] & [facility] Address [place], [place] [address] Care Team Providers Care Flat Cutter Name Role Phone [facility] Primary Care Provider Unavail able Allergies [...] REFLEX MEASURED LDL (12/29/2011 8:31 AM CDT) [facility] CHOLESTEROL,TOTAL 180 100 - 199 mg/dL 12/29/2011 9:[address] [facility] TRIGLYCERIDES 37 <150 mg/dL 12/29/2011 9:[address] [facility] HDL CHOLESTEROL 75 >40 mg/dL 2 9:[address] [facility] CHOL/HDL RATIO 2.40 <4.50 12/29/2011 9:[address] [facility] LDL CHOLESTEROL 98 >=0 mg/dL 2 9:[address] [facility] PATIENT STATUS FASTING 12/29/2011 9:[address] [facility] Blood specimen (specimen) BLOOD SPECIMEN / Unknown 12/29/2011 8:31 AM CDT 12/29/2011 8:31 AM CDT Lola Malagon CHEMISTRY [facility] [address] [place] [address] * XR MAMMO BILAT SCREEN FFDM (12/29/2011 [...] ?? COMPARISON FILMS: Yes 11/05/[address] [facility] 10/25/[address] [facility] FINDINGS: ??Mammographically, the breast tissue [...] Detection. COMPARISON FILMS: Yes 11/05/[address] [facility] 10/25/[address] [facility] FINDINGS: Mammographically, the breast tissue [...] Recently Relevant to Health Maintenance Care Teams Flat Cutter Relationship Specialty Start Date End Date Erma Gipson PCP - General 04/02/16
--- OUTSIDE RECORDS SUMMARY | 2024-01-07 08:46 | XMS_ITS | Continuity of Care Document ---
Author Organization Z [facility] Address [address] [place] [address] [address] [place] [address] Phone Care Team Providers Care Gill Box Operator Name Role Phone Gladys MACHUCA, Nino Unavailable Unavailable Procedures Procedure Date Office consultation, moderate 9 Advance Directives Directive Yes / No Effective Date File Name No Information Encounters Encounter Description Practice Location Reason(s) For Visit Diagnoses Date Provider Providers Copied on Encounter Office consultation, moderate Z [facility], [address] [place], [place] [address], [address], [place] tel:[phone] 4321 [facility] No Information Gladys Oneill. [facility] [place], [address], [place], [place], [id number] , [place]. tel:[phone] Referring Provider: Rickie Mancini, [address], [address]. tel:[phone] Family History Family Member Type Diagnosis Age At Onset No Information Payers Payer name Insurance type Covered republican ID Authormarkya deandre(s) [facility] [id number] Social History Type Description Quantity Date Captured [...]
[2024-01-07 11:48] VITALS: BMI 36.8
== END 2024-01-07 08:45 | disposition home or self-care (01) ==
LOC: NUTRITION 08:44
PROVIDERS: PCP Internal Medicine; Visit Provider Dietitian, Registered
DX: E66.9 Obesity, unspecified (principal); Z71.3 Dietary counseling and surveillance
CPT/HCPCS: G0463

== ENCOUNTER 2024-01-26 09:50 | Outpatient (CLI) | payer MEDICARE, SELFPAY ==
--- OUTSIDE RECORDS SUMMARY | 2024-01-26 09:53 | XMS_ITS | Clinical Summary ---
Author Organization [facility] s & [facility] Address [place], [place] [address] Care Team Providers Care Agricultural Research Technician Name Role Phone Clinic, [facility] Primary Care Pr ovider Allergies No known active allergies Medications Medication [...] REFLEX MEASURED LDL (12/29/2011 8:31 AM CDT) [facility] CHOLESTEROL,TOTAL 180 100 - 199 mg/dL 12/29/2011 9:24 AM CDT [facility] TRIGLYCERIDES 37 <150 mg/dL 12/29/2011 9:24 AM CDT [facility] HDL CHOLESTEROL 75 >40 mg/dL 2 9:24 AM CDT [facility] CHOL/HDL RATIO 2.40 <4.50 12/29/2011 9:24 AM CDT [facility] LDL CHOLESTEROL 98 >=0 mg/dL 2 9:24 AM CDT [facility] PATIENT STATUS FASTING 12/29/2011 9:24 AM CDT [facility] Blood specimen (specimen) BLOOD SPECIMEN / Unknown 12/29/2011 8:31 AM CDT 12/29/2011 8:31 AM CDT Lola Malagon CHEMISTRY [facility] [address] [place] [id number] * XR MAMMO BILAT SCREEN FFDM (12/29/2011 [...] Computer-Aided Detection. ?? COMPARISON FILMS: Yes 11/05/10 [facility] 10/25/07 [facility] FINDINGS: ??Mammographically, the breast tissue has scattered [...] of Computer-Aided Detection. COMPARISON FILMS: Yes 11/05/10 [facility] 10/25/07 [facility] FINDINGS: Mammographically, the breast tissue has scatteredfibroglandular [...] Recently Relevant to Health Maintenance Care Teams Agricultural Research Technician Relationship Specialty Start Date End Date Clinic, [facility] [address] [place] [address] PCP - General 01/18/24
--- OUTSIDE RECORDS SUMMARY | 2024-01-26 09:53 | XMS_ITS | Continuity of Care Document ---
Author Organization Z [facility] Address [address] [place] [address] 600 [place] [address] Phone Care Team Providers Care Livestock Yard Supervisor Name Role Phone Gladys MACHUCA, Nino Unavailable Unavailable Procedures Procedure Date Office consultation, moderate 9 Advance Directives Directive Yes / No Effective Date File Name No Information Encounters Encounter Description Practice Location Reason(s) For Visit Diagnoses Date Provider Providers Copied on Encounter Office consultation, moderate Z [facility], [address] [place], [place] [address], [address], [place] tel:[phone] 1082 [facility] No Information Gladys Oneill. [facility] [place], [address], [place], [place], [id number] , [place]. tel:[phone] Referring Provider: Rickie Mancini, [address], [address]. tel:[phone] Family History Family Member Type Diagnosis Age At Onset No Information Payers Payer name Insurance type Covered alliance party ID Authormarkya deandre(s) [facility] [id number] Social History Type Description Quantity Date Captured [...]
[2024-01-26 14:39] VITALS: BMI 36.5
== END 2024-01-26 09:51 | disposition home or self-care (01) ==
LOC: NUTRITION 09:50
PROVIDERS: PCP Internal Medicine; Visit Provider Dietitian, Registered
DX: E66.9 Obesity, unspecified (principal); Z71.3 Dietary counseling and surveillance
CPT/HCPCS: G0463

== ENCOUNTER 2024-02-03 08:13 | Outpatient (CLI) | payer MEDICARE, SELFPAY ==
--- OUTSIDE RECORDS SUMMARY | 2024-02-03 08:16 | XMS_ITS | Clinical Summary ---
Author Organization [facility] & [facility] Address [place], [place] [address] Care Team Providers Care Data Examination Clerk Name Role Phone Clinic, [facility] Primary Care Pr ovider Allergies No known [...] REFLEX MEASURED LDL (12/29/2011 8:31 AM CDT) [facility] CHOLESTEROL,TOTAL 180 100 - 199 mg/dL 12/29/2011 9:24 AM CDT [facility] TRIGLYCERIDES 37 <150 mg/dL 12/29/2011 9:24 AM CDT [facility] HDL CHOLESTEROL 75 >40 mg/dL 2 9:24 AM CDT [facility] CHOL/HDL RATIO 2.40 <4.50 12/29/2011 9:24 AM CDT [facility] LDL CHOLESTEROL 98 >=0 mg/dL 2 9:24 AM CDT [facility] PATIENT STATUS FASTING 12/29/2011 9:24 AM CDT [facility] Blood specimen (specimen) BLOOD SPECIMEN / Unknown 12/29/2011 8:31 AM CDT 12/29/2011 8:31 AM CDT Lola Malagon CHEMISTRY [facility] [address] [place] [id number] * XR MAMMO BILAT SCREEN FFDM (12/29/2011 [...] Computer-Aided Detection. ?? COMPARISON FILMS: Yes 11/05/10 [facility] 10/25/07 [facility] FINDINGS: ??Mammographically, the breast tissue has [...] of Computer-Aided Detection. COMPARISON FILMS: Yes 11/05/10 [facility] 10/25/07 [facility] FINDINGS: Mammographically, the breast tissue has [...] Recently Relevant to Health Maintenance Care Teams Data Examination Clerk Relationship Specialty Start Date End Date Clinic, [facility] [address] [place] [address] PCP - General 01/18/24
--- OUTSIDE RECORDS SUMMARY | 2024-02-03 08:17 | XMS_ITS | Continuity of Care Document ---
Author Organization Z [facility] Address [address] [place] [address] 600 [place] [address] Phone Care Team Providers Care Certified Paralegal Name Role Phone Gladys MACHUCA, Nino Unavailable Unavailable Procedures Procedure Date Office consultation, moderate 9 Advance Directives Directive Yes / No Effective Date File Name No Information Encounters Encounter Description Practice Location Reason(s) For Visit Diagnoses Date Provider Providers Copied on Encounter Office consultation, moderate Z [facility], [address] [place], [place] [address], [address], [place] tel:[phone] 1999 [facility] No Information Gladys Oneill. [facility] [place], [address], [place], [place], [id number] , [place]. tel:[phone] Referring Provider: Rickie Mancini, [address], [address]. tel:[phone] Family History Family Member Type Diagnosis Age At Onset No Information Payers Payer name Insurance type Covered constitution party ID Authormarkya deandre(s) [facility] [id number] Social History Type Description Quantity Date Captured [...]
== END 2024-02-03 08:14 | disposition home or self-care (01) ==
LOC: NFLDREF 08:14
PROVIDERS: PCP Internal Medicine; Visit Provider Family Medicine
DX: R39.9 Unspecified symptoms and signs involving the genitourinary system (principal)
CPT/HCPCS: 87086

== ENCOUNTER 2024-02-13 13:36 | Outpatient (CLI) | payer MEDICARE, SELFPAY ==
--- OUTSIDE RECORDS SUMMARY | 2024-02-20 23:55 | XMS_ITS | Continuity of Care Document ---
Author Organization Z [facility] Address [address] [place] [address] [address] [place] [address] Phone Care Team Providers Care Linoleum Layer Name Role Phone Gladys MACHUCA, Nino Unavailable Unavailable Procedures Procedure Date Office consultation, moderate 9 Advance Directives Directive Yes / No Effective Date File Name No Information Encounters Encounter Description Practice Location Reason(s) For Visit Diagnoses Date Provider Providers Copied on Encounter Office consultation, moderate Z [facility], [address] [place], [place] [address], [address], [place] tel:[phone] 1790 [facility] No Information Gladys Oneill. [facility] [place], [address], [place], [place], [id number] , [place]. tel:[phone] Referring Provider: Rickie Mancini, [address], [address]. tel:[phone] Family History Family Member Type Diagnosis Age At Onset No Information Payers Payer name Insurance type Covered constitution party ID Authormarkya deandre(s) [facility] [id number] Social History Type Description Quantity Date Captured [...]
--- OUTSIDE RECORDS SUMMARY | 2024-02-20 23:55 | XMS_ITS | Clinical Summary ---
Author Organization [facility] Address [place], [place] [address] Care Team Providers Care Physics Technician Name Role Phone Clinic, [facility] Primary Care Pr ovider Allergies No [...] Unspecified constipation 08/16/2012 Adenomatous colon polyp 06/09/2012 Overview (06/09/2012): Colonoscopy 05/2012 polyp repeat in 3 years Skin lesion 01/05/2012 Vitamin D deficiency 02/12/2011 Thoracic or lumbosacral neur itis or radiculitis, unspecified 05/19/2008 Displacement of lumbar inter vertebral disc without myelopathy 05/19/2008 Overview (09/07/2013): Herniated l4-5 disc noted on MRI health maintenance 10/25/2007 Overview (03/23/2012): Colonoscopy negative 1999. Osteopenia on dexa. Recommend diet and exercise. Recheck 3-5 years. Lola Malagon M.D. 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 [...] booster 10/24/2017 10/25/2007, 07/31/1997 COVID-19 vaccine series ( season) 2024 Influenza for age 65+ 02/07/2024 Tdap Completed [...] REFLEX MEASURED LDL (12/29/2011 8:31 AM CDT) [facility] CHOLESTEROL,TOTAL 180 100 - 199 mg/dL 12/29/2011 9:24 AM CDT [facility] TRIGLYCERIDES 37 <150 mg/dL 12/29/2011 9:24 AM CDT [facility] HDL CHOLESTEROL 75 >40 mg/dL 2 9:24 AM CDT [facility] CHOL/HDL RATIO 2.40 <4.50 12/29/2011 9:24 AM CDT [facility] LDL CHOLESTEROL 98 >=0 mg/dL 2 9:24 AM T [facility] PATIENT STATUS FASTING 12/29/2011 9:24 AM T [facility] Blood specimen (specimen) BLOOD SPECIMEN / Unknown 12/29/2011 8:31 AM CDT 12/29/2011 8:31 AM CDT Lola Malagon CHEMISTRY [facility] [address] [place] [address] * XR MAMMO BILAT SCREEN FFDM (12/29/2011 [...] Computer-Aided Detection. ?? COMPARISON FILMS: Yes 11/05/10 [facility] 10/25/07 [facility] FINDINGS: ??Mammographically, the breast tissue has [...] of Computer-Aided Detection. COMPARISON FILMS: Yes 11/05/10 [facility] 10/25/07 [facility] FINDINGS: Mammographically, the breast tissue has [...] Recently Relevant to Health Maintenance Care Teams Physics Technician Relationship Specialty Start Date End Date [facility], [facility] [address] [place] [address] PCP - General 01/18/24
== END 2024-02-13 13:37 | disposition home or self-care (01) ==
LOC: NFLDREF 02-20 23:53
PROVIDERS: PCP Internal Medicine; Referring Provider Internal Medicine; Visit Provider Family Medicine
DX: N39.0 Urinary tract infection, site not specified (principal); N30.01 Acute cystitis with hematuria
CPT/HCPCS: 87086

== ENCOUNTER 2024-03-10 10:23 | Outpatient (CLI) | payer MEDICARE, SELFPAY ==
[2024-03-10 09:50] VITALS: BMI 34.9
--- OUTSIDE RECORDS SUMMARY | 2024-03-10 10:24 | XMS_ITS | Clinical Summary ---
Author Organization [facility] Address [place], [place] [address] Care Team Providers Care Mill Laborer Name Role Phone Clinic, [facility] Primary Care Pr ovider Allergies No [...] booster 10/24/2017 10/25/2007, 07/31/1997 COVID-19 vaccine series (2023- season) 2024 Influenza for age 65+ 02/07/2024 [...] REFLEX MEASURED LDL (12/29/2011 8:31 AM CDT) [facility] CHOLESTEROL,TOTAL 180 100 - 199 mg/dL 12/29/2011 9:24 AM CDT [facility] TRIGLYCERIDES 37 <150 mg/dL 12/29/2011 9:24 AM CDT [facility] HDL CHOLESTEROL 75 >40 mg/dL 2 9:24 AM CDT [facility] CHOL/HDL RATIO 2.40 <4.50 12/29/2011 9:24 AM CDT [facility] LDL CHOLESTEROL 98 >=0 mg/dL 2 9:24 AM T [facility] PATIENT STATUS FASTING 12/29/2011 9:24 AM T [facility] Blood specimen (specimen) BLOOD SPECIMEN / Unknown 12/29/2011 8:31 AM CDT 12/29/2011 8:31 AM CDT Lola Malagon CHEMISTRY [facility] [address] [place] [address] * XR MAMMO BILAT SCREEN FFDM (12/29/2011 [...] Computer-Aided Detection. ?? COMPARISON FILMS: Yes 11/05/10 [facility] 10/25/07 [facility] FINDINGS: ??Mammographically, the breast tissue has scattered [...] of Computer-Aided Detection. COMPARISON FILMS: Yes 11/05/10 [facility] 10/25/07 [facility] FINDINGS: Mammographically, the breast tissue has scatteredfibroglandular [...] Recently Relevant to Health Maintenance Care Teams Mill Laborer Relationship Specialty Start Date End Date [facility] [facility], [facility] [address] [place] [address] PCP - General 01/18/24
--- OUTSIDE RECORDS SUMMARY | 2024-03-10 10:25 | XMS_ITS | Continuity of Care Document ---
Author Organization Z [facility] Address [address] [place] [address] [address] [place] [address] Phone Care Team Providers Care Capacitor Assembler Name Role Phone Gladys MACHUCA, Nino Unavailable Unavailable Procedures Procedure Date Office consultation, moderate 9 Advance Directives Directive Yes / No Effective Date File Name No Information Encounters Encounter Description Practice Location Reason(s) For Visit Diagnoses Date Provider Providers Copied on Encounter Office consultation, moderate Z [facility], [address] [place], [place] [address], [address], [place] tel:[phone] 2799 [facility] No Information Gladys Oneill. [facility] [place], [address], [place], [place], [id number] , [place]. tel:[phone] Referring Provider: Rickie Mancini, [address], [address]. tel:[phone] Family History Family Member Type Diagnosis Age At Onset No Information Payers Payer name Insurance type Covered republican ID Authormarkya deandre(s) [facility] [id number] Social History Type Description Quantity Date Captured [...]
== END 2024-03-10 10:24 | disposition home or self-care (01) ==
LOC: NUTRITION 10:23
PROVIDERS: PCP Internal Medicine; Visit Provider Dietitian, Registered
DX: E66.9 Obesity, unspecified (principal); Z71.3 Dietary counseling and surveillance
CPT/HCPCS: G0463

== ENCOUNTER 2024-04-07 06:46 | Outpatient (CLI) | payer MEDICARE, SELFPAY ==
--- OUTSIDE RECORDS SUMMARY | 2024-04-07 06:49 | XMS_ITS | Clinical Summary ---
Author Organization [facility] Address [place], [place] [address] Care Team Providers Care Finisher Denture Name Role Phone Clinic, [facility] Primary Care Pr ovider Allergies No [...] REFLEX MEASURED LDL (12/29/2011 8:31 AM CDT) [facility] CHOLESTEROL,TOTAL 180 100 - 199 mg/dL 12/29/2011 9:24 AM CDT [facility] TRIGLYCERIDES 37 <150 mg/dL 12/29/2011 9:24 AM CDT [facility] HDL CHOLESTEROL 75 >40 mg/dL 2 9:24 AM CDT [facility] CHOL/HDL RATIO 2.40 <4.50 12/29/2011 9:24 AM CDT [facility] LDL CHOLESTEROL 98 >=0 mg/dL 2 9:24 AM T [facility] PATIENT STATUS FASTING 12/29/2011 9:24 AM T [facility] Blood specimen (specimen) BLOOD SPECIMEN / Unknown 12/29/2011 8:31 AM CDT 12/29/2011 8:31 AM CDT Lola Malagon CHEMISTRY [facility] [address] [place] [address] * XR MAMMO BILAT SCREEN FFDM (12/29/2011 [...] Computer-Aided Detection. ?? COMPARISON FILMS: Yes 11/05/10 [facility] 10/25/07 [facility] FINDINGS: ??Mammographically, the breast tissue [...] of Computer-Aided Detection. COMPARISON FILMS: Yes 11/05/10 [facility] 10/25/07 [facility] FINDINGS: Mammographically, the breast tissue [...] Recently Relevant to Health Maintenance Care Teams Finisher Denture Relationship Specialty Start Date End Date [facility], [facility] [address] [place] [address] PCP - General 01/18/24
--- OUTSIDE RECORDS SUMMARY | 2024-04-07 06:49 | XMS_ITS | Continuity of Care Document ---
Author Organization Z [facility] Address [address] [place] [address] [address] [place] [address] Phone Care Team Providers Care Entry Level Staff Accountant Name Role Phone Gladys MACHUCA, Nino Unavailable Unavailable Procedures Procedure Date Office consultation, moderate 9 Advance Directives Directive Yes / No Effective Date File Name No Information Encounters Encounter Description Practice Location Reason(s) For Visit Diagnoses Date Provider Providers Copied on Encounter Office consultation, moderate Z [facility], [address] [place], [place] [address], [address], [place] tel:[phone] 1644 [facility] No Information Gladys Oneill. [facility] [place], [address], [place], [place], [id number] , [place]. tel:[phone] Referring Provider: Rickie Mancini, [address], [address]. tel:[phone] Family History Family Member Type Diagnosis Age At Onset No Information Payers Payer name Insurance type Covered libertarian ID Authormarkya deandre(s) [facility] [id number] Social History Type Description Quantity Date Captured [...]
[2024-04-07 11:47] VITALS: BMI 34.6
== END 2024-04-07 06:47 | disposition home or self-care (01) ==
LOC: NUTRITION 06:47
PROVIDERS: PCP Internal Medicine; Visit Provider Dietitian, Registered
DX: E66.9 Obesity, unspecified (principal); Z71.3 Dietary counseling and surveillance
CPT/HCPCS: G0463

== ENCOUNTER 2024-05-03 11:00 | Outpatient (CLI) | payer MEDICARE, SELFPAY ==
[2024-05-03 15:22] VITALS: BMI 34.6
--- OUTSIDE RECORDS SUMMARY | 2024-05-04 06:33 | XMS_ITS | Continuity of Care Document ---
Author Organization [facility] Address [address] [place] [address] [address] [place] [address] Phone Care Team Providers Care Solar Pv Installer Name Role Phone Gladys MACHUCA, Nino Unavailable Unavailable Procedures Procedure Date Office consultation, moderate 9 Advance Directives Directive Yes / No Effective Date File Name No Information Encounters Encounter Description Practice Location Reason(s) For Visit Diagnoses Date Provider Providers Copied on Encounter Office consultation, moderate Z [facility], [address] [place], [place] [address], [address], [place] tel:[phone] [address] [facility] No Information Gladys Oneill. [facility] [place], [address], [place], [place], [id number] , [place]. tel:[phone] Referring Provider: Rickie Mancini, [address], [address]. tel:[phone] Family History Family Member Type Diagnosis Age At Onset No Information Payers Payer name Insurance type Covered libertarian ID Authormarkya deandre(s) [facility] [id number] Social History Type Description Quantity Date Captured [...]
--- OUTSIDE RECORDS SUMMARY | 2024-05-04 06:33 | XMS_ITS | Clinical Summary ---
Author Organization [facility] Address [place], [place] [address] Care Team Providers Care Header Boss Name Role Phone Clinic, [facility] Primary Care Pr ovider Allergies No [...] 63 01/31/2015 12:48 PM CDT Temperature 36.9 C (98.4 F) 01/31/2015 12:48 PM CDT Respiratory Rate - [...] REFLEX MEASURED LDL (12/29/2011 8:31 AM CDT) [facility] CHOLESTEROL,TOTAL 180 100 - 199 mg/dL 12/29/2011 9:24 AM CDT [facility] TRIGLYCERIDES 37 <150 mg/dL 12/29/2011 9:24 AM CDT [facility] HDL CHOLESTEROL 75 >40 mg/dL 2 9:24 AM CDT [facility] CHOL/HDL RATIO 2.40 <4.50 12/29/2011 9:24 AM CDT [facility] LDL CHOLESTEROL 98 >=0 mg/dL 2 9:24 AM CDT [facility] PATIENT STATUS FASTING 12/29/2011 9:24 AM CDT [facility] Blood specimen (specimen) BLOOD SPECIMEN / Unknown 12/29/2011 8:31 AM CDT 12/29/2011 8:31 AM CDT Lola Malagon CHEMISTRY Performing Organization Address City/State/[facility] Co de Phone Number [facility] [address] [place] [address] * XR MAMMO BILAT SCREEN FFDM (12/29/2011 8:16 AM CDT) Anatomical Region Laterality Modality BREASTS, Breast Left, Breast Right Bilateral Mammography Impressions 12/29/2011 12:14 PM CDT There is no radiographic evidence for malignancy. Recommend annual mammograms. A lay language report of this examination will be provided to the patient. MAMMOGRAM ASSESSMENT: ACR 2 Benign Narrative 12/29/2011 12:14 PM CDT XR MAMMO BILAT SCREEN FFDM [G0202.0] CLINICAL HISTORY: This is an asymptomatic 61 y.o. patient. INDICATION FOR EXAM: Mammogram Screening. TECHNIQUE: CC & MLO views were obtained. This digital study was evaluated with the assistance of Computer-Aided Detection. COMPARISON FILMS: Yes 11/05/[address] [facility] 10/25/[address] [facility] FINDINGS: Mammographically, the breast tissue has scattered fibroglandular densities (approximately 25% - 50% glandular). No suspicious masses or microcalcifications. Benign appearing calcifications within both breasts and Benign [...] Yes 11/05/[address] [facility] 10/25/[address] [facility] FINDINGS: Mammographically, the breast tissue has [...] Recently Relevant to Health Maintenance Care Teams Header Boss Relationship Specialty Start Date End Date [facility], [facility] [address] [address] PCP - General 01/18/24
== END 2024-05-03 11:01 | disposition home or self-care (01) ==
PROVIDERS: PCP Internal Medicine; Visit Provider Dietitian, Registered
DX: E66.9 Obesity, unspecified (principal); Z71.3 Dietary counseling and surveillance
CPT/HCPCS: G0463

== ENCOUNTER 2024-05-19 08:41 | Outpatient (CLI) | payer MEDICARE, SELFPAY ==
[2024-05-19 09:57] VITALS: BMI 34.2
== END 2024-05-19 08:42 | disposition home or self-care (01) ==
LOC: NUTRITION 08:41
PROVIDERS: PCP Internal Medicine; Visit Provider Dietitian, Registered
DX: E66.9 Obesity, unspecified (principal); Z71.3 Dietary counseling and surveillance
CPT/HCPCS: G0463

== ENCOUNTER 2024-06-09 10:01 | Outpatient (CLI) | payer MEDICARE, SELFPAY ==
[2024-06-09 09:56] VITALS: BMI 34.4
== END 2024-06-09 10:02 | disposition home or self-care (01) ==
LOC: NUTRITION 10:02
PROVIDERS: PCP Internal Medicine; Visit Provider Dietitian, Registered
DX: E66.9 Obesity, unspecified (principal); Z71.3 Dietary counseling and surveillance
CPT/HCPCS: G0463

== ENCOUNTER 2024-07-07 11:06 | Outpatient (CLI) | payer MEDICARE, SELFPAY ==
[2024-07-07 09:41] VITALS: BMI 34.5
== END 2024-07-07 11:07 | disposition home or self-care (01) ==
LOC: NUTRITION 11:07
PROVIDERS: PCP Internal Medicine; Visit Provider Dietitian, Registered
DX: E66.9 Obesity, unspecified (principal); Z71.3 Dietary counseling and surveillance
CPT/HCPCS: G0463

== ENCOUNTER 2024-08-04 07:12 | Outpatient (CLI) | payer MEDICARE, SELFPAY ==
[2024-08-04 10:25] VITALS: BMI 34.2
== END 2024-08-04 07:13 | disposition home or self-care (01) ==
LOC: NUTRITION 07:12
PROVIDERS: PCP Internal Medicine; Visit Provider Dietitian, Registered
DX: E66.9 Obesity, unspecified (principal); Z68.41 Body mass index [BMI] 40.0-44.9, adult; Z71.3 Dietary counseling and surveillance
CPT/HCPCS: G0463

== ENCOUNTER 2024-09-01 09:00 | Outpatient (CLI) | payer MEDICARE, SELFPAY ==
[2024-09-01 12:03] VITALS: BMI 33.6
== END 2024-09-01 09:01 | disposition home or self-care (01) ==
LOC: NUTRITION 09:01
PROVIDERS: PCP Internal Medicine; Visit Provider Dietitian, Registered
DX: E66.9 Obesity, unspecified (principal); Z68.41 Body mass index [BMI] 40.0-44.9, adult; Z71.3 Dietary counseling and surveillance
CPT/HCPCS: G0463

== ENCOUNTER 2024-09-12 08:40 | Outpatient (CLI) | payer MEDICARE, SELFPAY | END 2024-09-12 08:41 | disposition home or self-care (01) | LOC: NFLDREF 09-16 07:22 | PROVIDERS: PCP Internal Medicine; Referring Provider Internal Medicine; Visit Provider Internal Medicine | DX: I10 Essential (primary) hypertension (principal); E78.5 Hyperlipidemia, unspecified; M81.0 Age-related osteoporosis without current pathological fracture | CPT/HCPCS: 80048; 80061; 82306 ==

== ENCOUNTER 2024-09-29 09:47 | Outpatient (CLI) | payer MEDICARE, SELFPAY ==
[2024-09-29 09:42] VITALS: BMI 33.6
== END 2024-09-29 09:48 | disposition home or self-care (01) ==
LOC: NUTRITION 09:47
PROVIDERS: PCP Internal Medicine; Visit Provider Dietitian, Registered
DX: E66.9 Obesity, unspecified (principal); Z68.41 Body mass index [BMI] 40.0-44.9, adult; Z71.3 Dietary counseling and surveillance
CPT/HCPCS: G0463

== ENCOUNTER 2024-10-14 08:59 | Outpatient (CLI) | payer MEDICARE, SELFPAY ==
--- NOTE | 2024-10-14 09:15 | CRLHL7_ITS ---
For Patients: As a result of the Century Cures Act, medical imaging exams and procedure reports are released immediately into your electronic medical record. You may view this report before your referring provider. If you have questions, please contact your health care provider. INDICATION: BILATERAL SCREENING MAMMOGRAM, ASYMPTOMATIC 74 Y/O FEMALE COMPARISON: 08/27/2023, 2021, 02/14/2021 TECHNIQUE: CC and MLO views were obtained. These mammographic images have been obtained using full-field digital technique. These mammographic images were interpreted with the benefit of computer aided detection and tomosynthesis. BREAST COMPOSITION: There are scattered areas of fibroglandular density. FINDINGS: No suspicious findings. ASSESSMENT: BI-RADS 2 Benign RECOMMENDATION: Annual screening mammogram. A lay language report of this examination will be provided to the patient. Dictated by: Larry Guzman MD @ 10/14/2024 10:11:03 (Electronically Signed)
== END 2024-10-14 09:00 | disposition home or self-care (01) ==
LOC: MAMMO 09:00
PROVIDERS: PCP Internal Medicine; Visit Provider Internal Medicine
DX: Z12.31 Encounter for screening mammogram for malignant neoplasm of breast (principal)
CPT/HCPCS: 77063; 77067

== ENCOUNTER 2025-01-12 07:15 | Outpatient (CLI) | payer MEDICARE, SELFPAY ==
--- NOTE | 2025-01-12 08:29 | P.ANES_ITS ---
Anesthesia Charges Start Date/Time Anesthesia Start Date: 01/12/25 Anesthesia Start Time: 08:00 Stop Date/Time Anesthesia Stop Date: 01/12/25 Anesthesia Stop Time: 08:25 Summary Extremes of Age - Over 70 or under 1: RADIO DIVISION OFFICER Coding CPT Codes CPT Codes: ANES LWR INTST SCR COLSC - 21860 ([id number]) P2 - PATIENT W/MILD SYST DISEASE, QK - HUMAN RESOURCES MANAGER 2-4 CNCRNT ANES PROC, QX - RADIO DIVISION OFFICER SVC W/ MD MED DIRECTION Additional Codes: Summary - Extremes of Age - Over 70 or under 1: RADIO DIVISION OFFICER ([id number])
--- NOTE | 2025-01-12 08:29 | W.ANESCHARGE ---
Anesthesia Charges Start Date/Time Anesthesia Start Date: 01/12/25 Anesthesia Start Time: 08:00 Stop Date/Time Anesthesia Stop Date: 01/12/25 Anesthesia Stop Time: 08:25 Summary Extremes of Age - Over 70 or under 1: AIR POLLUTION AUDITOR Coding CPT Codes CPT Codes: ANES LWR INTST SCR COLSC - 70518 ([id number]) P2 - PATIENT W/MILD SYST DISEASE, QK - REGISTERED NURSE BONE MARROW TRANSPLANT 2-4 CNCRNT ANES PROC, QX - AIR POLLUTION AUDITOR SVC W/ MD MED DIRECTION Additional Codes: Summary - Extremes of Age - Over 70 or under 1: AIR POLLUTION AUDITOR ([id number])
--- NOTE | 2025-01-12 08:44 | P.ANES_ITS ---
Anesthesia Charges Start Date/Time Anesthesia Start Date: 01/12/25 Anesthesia Start Time: 08:00 Stop Date/Time Anesthesia Stop Date: 01/12/25 Anesthesia Stop Time: 08:25 Summary Extremes of Age - Over 70 or under 1: MDA Coding CPT Codes CPT Codes: ANECyndi LWR INTST SCR COLSC - 69219 ([id number]) P2 - PATIENT W/MILD SYST DISEASE, QX - CERTIFIED PHARMACY TECHNICIAN SVC W/ MD MED DIRECTION, QK - AUTOMOTIVE REPAIR TECHNICIAN 2-4 CNCRNT ANES PROC Additional Codes: Summary - Extremes of Age - Over 70 or under 1: MDA ([id number])
--- NOTE | 2025-01-12 08:44 | W.ANESCHARGE ---
Anesthesia Charges Start Date/Time Anesthesia Start Date: 01/12/25 Anesthesia Start Time: 08:00 Stop Date/Time Anesthesia Stop Date: 01/12/25 Anesthesia Stop Time: 08:25 Summary Extremes of Age - Over 70 or under 1: MDA Coding CPT Codes CPT Codes: ANECyndi LWR INTST SCR COLSC - 69385 ([id number]) P2 - PATIENT W/MILD SYST DISEASE, QX - BUNDLE WRAPPER SVC W/ MD MED DIRECTION, QK - ACADEMIC COUNSELOR 2-4 CNCRNT ANES PROC Additional Codes: Summary - Extremes of Age - Over 70 or under 1: MDA ([id number])
== END 2025-01-12 07:16 | disposition home or self-care (01) ==
LOC: OP CLINIC 07:16
PROVIDERS: PCP Internal Medicine; Visit Provider Internal Medicine
DX: Z12.11 Encounter for screening for malignant neoplasm of colon (principal); K64.8 Other hemorrhoids; K57.30 Diverticulosis of large intestine without perforation or abscess without bleeding; Z86.0100 Personal history of colon polyps, unspecified
CPT/HCPCS: 00812; 45378; 99100; J2704